=== PATIENT | male | born 1995 | race Two or more races ===

== ENCOUNTER 2023-08-16 23:38 | Emergency (ER) | payer MEDICAID | END 2023-08-17 00:08 | disposition left against medical advice (07) | LOC: ER 23:38 | DX: S61.412A Laceration without foreign body of left hand, initial encounter (principal); Z53.21 Procedure and treatment not carried out due to patient leaving prior to being seen by health care provider; X58.XXXA Exposure to other specified factors, initial encounter; Y93.89 Activity, other specified; Y92.89 Other specified places as the place of occurrence of the external cause; Y99.8 Other external cause status ==